=== PATIENT | male | born 1955 | race Caucasian/White ===

== ENCOUNTER 2021-11-10 15:28 | Emergency (ER) | payer BC ==
[~2021-11-10] VITALS: Ht 190.5 cm; Wt 90.7 kg
[2021-11-10] MEDS ORDERED: HYDROCODONE/APAP 5MG-325MG TAB PO PRN (16:15)
[2021-11-10] MEDS ORDERED: NAPROXEN SODIU550 MG PO (17:49)
== END 2021-11-10 18:21 | disposition home or self-care (01) ==
LOC: ER 15:59
DX: M79.662 Pain in left lower leg (principal); S86.812A Strain of other muscle(s) and tendon(s) at lower leg level, left leg, initial encounter; W18.30XA Fall on same level, unspecified, initial encounter
CPT/HCPCS: 93971; 99283